=== PATIENT | male | born 1960 | race Caucasian/White ===

== ENCOUNTER 2016-07-04 06:41 | Emergency (ER) | payer BC ==
[2016-07-04] MEDS ORDERED: Ondansetron ODT TAB* 4 MG PO ONE (07:12)
[2016-07-04] MEDS ORDERED: NS 0.9% 1000 ML* 1,000 ML IV ONE (07:12)
[2016-07-04] MEDS ORDERED: Ondansetron INJ* 2 MG/ML VIAL IV ONE ×2 (07:31→11:36)
[2016-07-04 08:11] LABS: Hematocrit 41 % (42-52); Hemoglobin 14.2 g/dl (14.0-18.0); Mean Corpuscular HGB Conc 35 g/dl (31-36); Mean Corpuscular Hemoglobin 31 pg (27-31); Mean Corpuscular Volume 90 fL (80-94); Mean Platelet Volume 7 um3 (7.4-10.4); Red Blood Count 4.53 10^6/ul (4.0-5.4); Red Cell Distribution Width 14 % (10.5-15); White Blood Count 7.1 10^3/ul (3.5-10.8)
[2016-07-04 08:23] LABS: ALT 18 U/L (7-52); Albumin 4.1 g/dL (3.2-5.2); Alkaline Phosphatase 47 U/L (34-104); Amylase 20 U/L (29-103); BUN/Creatinine Ratio 22.5 (8-20); Blood Urea Nitrogen 18 mg/dL (6-24); C Reactive Protein 11.28 mg/L (< 5.00); CO2 Carbon Dioxide 22 mmol/L (22-32); Calcium 8.7 mg/dL (8.6-10.3); Chloride 104 mmol/L (101-111); EGFR African American 128.6 (>60); Globulin 2.7 g/dL (2-4); Glucose 144 mg/dL (70-100); Lipase 21 U/L (11.0-82.0); Sodium 134 mmol/L (133-145); Total Protein 6.8 g/dL (6.4-8.9)
--- NOTE | 2016-07-04 08:30 | ED ---
Abdominal Pain/Male - HPI Summary HPI Summary: Pt here w/ nausea x 1 month which has now progressed to vomiting in the past 2 days. He noticed this around the time he started taking medications for his bronchitis - initially tried Zpak w/o relief so was switched to something else ( he does not recall). Did not complete medication as nausea was too much to handle - worse after taking medications. He has a h/o GERD but states this doesn't feel the same. Has been taking his pantoprazole 40mg daily as directed. Also has an extensive h/o cardiac pathology with 5 IA's and cardiac cath x 20 per pt. He has multiple stents in place. Reports his sx today do NOT feel cardiac in nature based on location, quality and lack of associated sx. Denies iker chest pain, radiation from area of "discomfort" which he describes in the Lt sided ab/lower chest, SOB, RUIZ, LE edema. He does feel flushed when nausea approaches. Has tried peptobismal w/ o relief and reports this medication makes his stools dark but it's better when he's not taking it. Last BM was yesterday - normal for him. Denies mid or lower ab pain. No previous h/o ab surgery. Last colonoscopy 20 years ago for bleeding which was attributed to heavy ibuprofen use. He is currently on warfarin and a daily ASA 81mg for Factor V leiden w/ h/o clots. No iker bleeding or bruising to report at this time. H/o Lyme dz - takes daily anbx (cefuroxime axetil) for this as well. - History of Current Complaint Chief Complaint: EDNauseaVomitDiarrh Stated Complaint: VOMITING Time Seen by Provider: 07/04/16 06:59 Hx Obtained From: Patient Pain Intensity: 3 - Allergies/Home Medications Allergies/Adverse Reactions: Allergies Allergy/AdvReac Type Severity Reaction Status Date / Time Ibuprofen Allergy Severe Bleeding Verified 07/04/16 13:27 Penicillins [PCN] Allergy Severe Anaphylatic Verified 07/04/16 13:28 Shock Statins Allergy See Comment Verified 07/04/16 13:27 PMH/Surg Hx/FS Hx/Imm Hx Endocrine/Hematology History: Reports: Hx Anticoagulant Therapy - COUMADIN FOR FACTOR V LEIDEN, Hx Blood Disorders - FACTOR V LEIDEN DEFICIENCY, Hx Diabetes - DM 2 METFORMIN, Hx Thyroid Disease - HYPOTHYROID, ON DAILY MEDS, Other Endocrine /Hematological Disorders - Lyme disease Denies: Hx Blood Transfusions, Hx Bone Marrow Disease, Hx Systemic Lupus Erythematosus, Hx Sickle Cell Disease, Hx Anemia, Hx Unexplained Bleeding Cardiovascular History: Reports: Hx Angina, Hx Coronary Artery Disease, Hx Hypercholesterolemia, Hx Hypertension - ON DAILY MEDS, Hx Myocardial Infarction , Other Cardiovascular Problems/Disorders - FOLLOWED BY DR ELDRIDGE, LAST SEEN 06/13 Denies: Hx Aneurysm, Hx Auto Implanted Cardiovert Defib, Hx Cardiac Arrest, Hx Cardiomegaly, Hx Congenital Heart Disease, Hx Congestive Heart Failure, Hx Hypotension, Hx Pacemaker/ICD, Hx Peripheral Vascular Disease, Hx Rheumatic Fever, Hx Syncope, Hx Valvular Heart Disease Respiratory History: Reports: Hx Sleep Apnea Denies: Hx Asthma, Hx Chronic Bronchitis, Hx Chronic Obstructive Pulmonary Disease (COPD), Hx Cystic Fibrosis, Hx Lung Cancer, Hx Pleural Effusion, Hx Pneumonia, Hx Pulmonary Edema, Hx Seasonal Allergies, Other Respiratory Problems /Disorders GI History: Reports: Hx Gastroesophageal Reflux Disease - ON DAILY MEDS Denies: Hx Cirrhosis, Hx Crohn's Disease, Hx Diverticulosis, Hx Gall Bladder Disease, Hx Gastrointestinal Bleed, Hx Hiatal Hernia, Hx Irritable Bowel, Hx Jaundice, Hx Obstructive Bowel, Hx Ileostomy, Hx Pyloric Stenosis, Hx Ulcer, Other GI Disorders History: Denies: Hx Acute Renal Failure, Hx Benign Prostatic Hyperplasia, Hx Chronic Renal Failure, Hx Dialysis, Hx Kidney Infection, Hx Kidney Stones Musculoskeletal History: Reports: Hx Arthritis - Sx, BUT CAUSE OF JOINT PAINS IS R/T LYME DISEASE, Other Musculoskeletal History - RIGHT KNEE ARTHROSCOPY Denies: Hx Back Problems, Hx Bursitis, Hx Congenital Bone Abnormalities, Hx Fibromyalgia, Hx Gout, Hx Orthopedic Injury, Hx Osteoporosis, Hx Scoliosis, Hx Tendonitis Sensory History: Reports: Hx Contacts or Glasses - GLASSES Denies: Hx Cataracts, Hx Eye Injury, Hx Eye Prosthesis, Hx Glaucoma, Hx Legally Blind, Hx Macular Degeneration, Hx Vision Problem, Hx Deafness, Hx Hearing Aid, Hx Hearing Problem, Other Sensory Impairments Opthamlomology History: Reports: Hx Contacts or Glasses - GLASSES Denies: Hx Cataracts, Hx Eye Injury, Hx Eye Prosthesis, Hx Glaucoma, Hx Legally Blind, Hx Macular Degeneration, Hx Vision Problem, Other Sensory Impairments Neurological History: Denies: Hx Dementia, Hx Developmental Delay, Hx Headaches, Hx Migraine, Hx Nerve Disease, Hx Seizures, Hx Spinal Cord Injury, Hx Transient Ischemic Attacks (TIA) Psychiatric History: Reports: Hx Depression - HAS MEDS PRN Denies: Hx Anxiety, Hx Attention Deficit Hyperactivity Disorder, Hx Eating Disorder, Hx Panic Disorder, Hx Post Traumatic Stress Disorder, Hx Inpatient Treatment, Hx Community Mental Health Tx, Hx Schizophrenia, Hx Bipolar Disorder , Hx Suicide Attempt, Hx of Violent Episodes Against Others, Hx Substance Abuse , Other Psychiatric Issues/Disorders - Surgical History Surgery Procedure, Year, and Place: MULT.CARDIAC CATHETERIZATIONS W/STENTS, [id number] [facility] [place]. 1999 RIGHT KNEE ARTHROSCOPY [facility] [place] Hx Anesthesia Reactions: No Infectious Disease History: No Infectious Disease History: Denies: Hx Clostridium Difficile, Hx Hepatitis, Hx Human Immunodeficiency Virus (HIV), Hx of Known/Suspected MRSA, Hx Shingles, Hx Tuberculosis, Hx Known/ Suspected VRE, Hx Known/Suspected VRSA, History Other Infectious Disease, Traveled Outside the in Last 30 Days - Social History Occupation: Employed Full-time - machinist apprentice Lives: With Family - Alcohol Use: Rare Substance Use Type: Reports: None Smoking Status (MU): Former Smoker Type: Cigarettes Amount Used/How Often: 2PPD 30 YRS Length of Time of Smoking/Using Tobacco: 30 yrs; quit 2004 Have You Smoked in the Last Year: No Review of Systems Positive: Fatigue - nausea has been exhausting to deal with. Negative: Fever, Chills Eyes: Negative ENT: Negative Negative: Chest Pain Respiratory: Other - bronchitis improved since last month - no complaints at this time Negative: Shortness Of Breath, Cough Gastrointestinal: Other - see HPI Positive: no symptoms reported Musculoskeletal: Negative Skin: Negative Neurological: Negative Psychological: Normal - concerned All Other Systems Reviewed And Are Negative: Yes Physical Exam Triage Information Reviewed: Yes Vital Signs On Initial Exam: Initial Vitals Temp Pulse Resp BP Pulse Ox 96.3 F 77 18 166/78 99 07/04/16 06:49 07/04/16 06:49 07/04/16 06:49 07/04/16 06:49 07/04/16 06:49 Vital Signs Reviewed: Yes Appearance: Positive: Well-Nourished, Ill-Appearing - appears pale in general Skin: Positive: Warm, Dry - no ecchymosis Head/Face: Positive: Normal Head/Face Inspection Eyes: Positive: Normal, EOMI, Conjunctiva Clear - anicteric ENT: Positive: Hearing grossly normal, Pharynx normal - mucosa somewhat dry Neck: Positive: Supple Respiratory/Lung Sounds: Positive: Clear to Auscultation, Breath Sounds Present. Negative: Rales, Rhonchi, Wheezes Cardiovascular: Positive: Normal, RRR, Pulses are Symmetrical in both Upper and Lower Extremities, S1, S2. Negative: Murmur, Rub, Leg Edema Left, Leg Edema Right Abdomen Description: Positive: Guarding, Other: - epigastric, RUQ and LUQ. Negative: CVA Tenderness (R), CVA Tenderness (L), McBurney's Point Tenderness, Pulsatile Mass Bowel Sounds: Positive: Present Musculoskeletal: Positive: Normal, Strength/ROM Intact Neurological: Positive: Normal, Sensory/Motor Intact, Alert, Oriented to Person Place, Time, CN Intact II-III Psychiatric: Positive: Normal - concerned, subtle anxiety Diagnostics - Vital Signs Vital Signs Temp Pulse Resp BP Pulse Ox 07/04/16 06:49 96.3 F 77 18 166/78 99 - Laboratory Lab Results: Lab Results 07/04/16 07/04/16 07/04/16 Range/Units 07:54 07:54 07:54 WBC 7.1 (3.5-10.8) 10^3/ul RBC 4.53 (4.0-5.4) 10^6/ul Hgb 14.2 (14.0-18.0) g/dl Hct 41 L (42-52) % MCV 90 (80-94) fL MCH 31 (27-31) pg MCHC 35 (31-36) g/dl RDW 14 (10.5-15) % Plt Count 188 (150-450) 10^3/ul MPV 7 L (7.4-10.4) um3 Neut % (Auto) 74.9 (38-83) % Lymph % (Auto) 15.6 L (25-47) % Ferry % (Auto) 7.0 (1-9) % Eos % (Auto) 2.0 (0-6) % Baso % (Auto) 0.5 (0-2) % Absolute Neuts (auto) 5.3 (1.5-7.7) 10^3/ul Absolute Lymphs (auto) 1.1 (1.0-4.8) 10^3/ul Absolute Monos (auto) 0.5 (0-0.8) 10^3/ul Absolute Eos (auto) 0.1 (0-0.6) 10^3/ul Absolute Basos (auto) 0 (0-0.2) 10^3/ul Absolute Nucleated RBC 0 10^3/ul Nucleated RBC % 0 INR (Anticoag Therapy) 1.98 H (0.89-1.11) APTT 36.2 (26.0-36.3) seconds Lactic Acid 1.1 (0.5-2.0) mmol/L Result Diagrams: 07/04/16 07:54 07/04/16 10:15 Lab Statement: Any lab studies that have been ordered have been reviewed, and results considered in the medical decision making process. Re-Evaluation - Re-Evaluation First Eval Change: Improved - nausea improved - stomach not as sore - no GERD sx and no chest pain - was resting comfortably upon re-check Abdominal Pain Fem Course/Dx - Course Course Of Treatment: Pt presents w/ nausea x 1 month and vomiting in past 24 hours. No life threatenting causes for these sx were identified today and pt's sx improved w/ anti-emetic and IV fluids. Discussed other possible options for his condition w/ pt and who agree to f/u w/ PCP this week for further investigation (see d/c for details). Reviewed danger s/sx of when to return to ED. - Diagnoses Provider Diagnoses: Epigastric abdominal pain, Nausea & vomiting - Provider Notifications Discussed Care Of Patient With: Dr. Basilio Discharge - Discharge Plan Condition: Stable Disposition: HOME Prescriptions: Ondansetron ODT TAB* [Zofran Odt TAB*] 4 mg PO Q8H PRN #9 tab.odt PRN Reason: Nausea Patient Education Materials: Acute Nausea and Vomiting (ED), Abdominal Pain (ED ) Forms: *Work Release Referrals: Supa Eldridge MD [Primary Care Provider] - Additional Instructions: Your nausea and abdominal pain are of unknown origin. Potential life threatening causes of acute cardiac injury and/or abdominal organ dysfunction have been ruled out through tests today. Your nausea improved and abdominal pain lessened with zofran, an anti-nausea medication. It is important that you follow-up with your PCP to further discuss other potential triggers for these symptoms. You reported a history of h. pylori which can be tested. You also have been using antibiotics for a long period of time and may benefit from probiotic therapy. Your gallbladder may also not be functioning well. And so on. If you develop worsening of symptoms, return to ED.
[2016-07-04 08:55] LABS: TSH (Thyroid Stimulating Horm) 1.93 mcIU/mL (0.34-5.60)
--- NOTE | 2016-07-04 11:23 | RAD ---
INDICATION: Right upper quadrant pain. COMPARISON: Comparison is made with a prior right upper quadrant ultrasound from [address] of the abdomen from January 15, 2012. TECHNIQUE: Multiple real-time images of the right upper quadrant were obtained. FINDINGS: The gallbladder appear normal. No gallbladder wall thickening or pericholecystic fluid is present. No intra or extrahepatic ductal distention is present. The common bile duct measured 0.4 cm in diameter. The liver is normal in size and increased in echogenicity most consistent with fatty infiltration. This correlates with the prior CT findings. No significant focal abnormality is seen. The pancreas is partially obscured by overlying bowel gas. The right kidney is normal in size without evidence for hydronephrosis. IMPRESSION: 1. NORMAL EXAMINATION OF THE GALLBLADDER. 2. FINDINGS MOST CONSISTENT WITH FATTY INFILTRATION OF THE LIVER.
[2016-07-04] MEDS ORDERED: Iodixanol* (CONTRAST) 320 MG/ML 100 ML SDV IV ONE (11:34)
--- NOTE | 2016-07-04 12:36 | RAD ---
INDICATION: Upper abdominal pain and vomiting. COMPARISON: Comparison is made with a prior CT angiogram of the abdomen and pelvis from January 15, 2012. TECHNIQUE: A CT scan of the abdomen and pelvis was performed with intravenous and oral contrast following intravenous injection of 125 ml of is a PICC 320 nonionic contrast. Contiguous axial sections were obtained from the lung bases through the symphysis pubis. Images were reconstructed in the coronal and sagittal planes. FINDINGS: The lung bases are clear. No pleural effusion is present. The liver and spleen are within normal limits in size without significant focal abnormality. No calcified gallstones are seen. The pancreas appears to be within normal limits in size. The kidneys and adrenal glands are normal in size. No hydronephrosis is seen. No significant focal renal abnormality is seen. The abdominal aorta is normal in caliber. There is moderate calcific plaque present. There is a high-grade stenosis at the origin of the celiac artery. This is unchanged from the prior study. No significant enlarged retroperitoneal abdominal or pelvic lymph nodes are seen. The stomach, small and large bowel appear nondistended. The appendix is within normal limits. There is no evidence for diverticulitis or colitis. There is a small periumbilical hernia containing fat. No free intraperitoneal air or fluid is seen. No significant focal osseous abnormality is seen. IMPRESSION: 1. NO EVIDENCE FOR ACUTE INTRA-ABDOMINAL ABNORMALITY OR CAUSE FOR THE PATIENT'S ABDOMINAL PAIN IS SEEN. 2. 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
[2016-07-04 13:47] VITALS: BP 158/76
== END 2016-07-04 13:45 | disposition home or self-care (01) ==
LOC: ED 06:41
DX: R10.13 Epigastric pain (principal); R53.83 Other fatigue; R11.2 Nausea with vomiting, unspecified
CPT/HCPCS: 36415; 74177; 76705; 80053; 82150; 82272; 83605; 83690; 84443; 84484; 85025; 85610; 85730; 86140; 93005; 96374; 96375; 99282; J2405; Q9967

== ENCOUNTER 2016-10-04 18:49 | Emergency (ER) | payer BC ==
[2016-10-04 19:08] VITALS: BP 158/78
--- NOTE | 2016-10-04 19:10 | UC ---
Laceration HPI - HPI Summary HPI Summary: complaint of laceration on left middle finger he was at work today and his finger was pinched between 2 peices of steel that he was moving occurred at 1845 this evening hasn't taken any medications for pain last tetanus 2008 - History Of Current Complaint Stated Complaint: FINGER LAC Time Seen by Provider: 10/04/16 19:01 Hx Obtained From: Patient Mechanism Of Injury: Sharp Trauma Onset/Duration: Sudden Onset Severity: Mild Aggravating Factors: Nothing Related History: Occupational Injury, Dominant Hand Right - Allergies/Home Medications Allergies/Adverse Reactions: Allergies Allergy/AdvReac Type Severity Reaction Status Date / Time Ibuprofen Allergy Severe Bleeding Verified 07/04/16 13:27 Penicillins [PCN] Allergy Severe Anaphylatic Verified 07/04/16 13:28 Shock Statins Allergy See Comment Verified 07/04/16 13:27 Home Medications: Home Medications Cefuroxime Axetil [Ceftin 500 MG TAB] 10/04/16 [History] Fenofibrate [Tricor] DAILY 10/04/16 [History] Hydroxychloroquine TAB* [Plaquenil TAB*] 10/04/16 [History] Pioglitazone HCl 10/04/16 [History] traZODone TAB* [Desyrel TAB*] 10/04/16 [History] PMH/Surg Hx/FS Hx/Imm Hx Previously Healthy: Yes Endocrine History Of: Reports: Diabetes - DM 2 METFORMIN, Thyroid Disease - HYPOTHYROID, ON DAILY MEDS Cardiovascular History Of: Reports: Hypertension - ON DAILY MEDS, Myocardial Infarction Denies: Pacemaker/ICD, Congestive Heart Failure Respiratory History Of: Denies: COPD, Asthma, Pneumonia GI/ History Of: Denies: Ulcer, Gastrointestinal Bleed, Gall Bladder Disease, Kidney Stones, Renal Disease Neurological History Of: Denies: TIA, CVA, Dementia, Seizures, Migraine Psychological History Of: Reports: Depression - HAS MEDS PRN Denies: Anxiety, Bipolar Disorder, Schizophrenia Cancer History Of: Denies: Lung Cancer Other History Of: Anticoagulant Therapy - COUMADIN FOR FACTOR V LEIDEN - Surgical History Surgical History: Yes Surgery Procedure, Year, and Place: MULT.CARDIAC CATHETERIZATIONS W/STENTS, [id number] [place]. 2000 RIGHT KNEE ARTHROSCOPY [place] - Family History Known Family History: Negative: Cardiac Disease, Hypertension, Diabetes - Social History Occupation: Employed Full-time Lives: With Family Alcohol Use: Rare Substance Use Type: None Smoking Status (MU): Former Smoker Type: Cigarettes Amount Used/How Often: 2PPD 30 YRS Length of Time of Smoking/Using Tobacco: 30 yrs; quit 2004 Have You Smoked in the Last Year: No When Did the Patient Quit Smoking/Using Tobacco: 2006 - Immunization History Most Recent Influenza Vaccination: FALL 2013 Most Recent Tetanus Shot: UNK Most Recent Pneumonia Vaccination: NEVER Review of Systems Constitutional: Negative Skin: Other - laceration left middle finger Eyes: Negative ENT: Negative Respiratory: Negative Cardiovascular: Negative Gastrointestinal: Negative Genitourinary: Negative Motor: Negative Neurovascular: Negative Musculoskeletal: Negative Neurological: Negative Psychological: Negative All Other Systems Reviewed And Are Negative: Yes Physical Exam Triage Information Reviewed: Yes Appearance: No Pain Distress, Well-Nourished Vital Signs Reviewed: Yes Eyes: Positive: Conjunctiva Clear Neck: Positive: Supple Respiratory: Positive: Lungs clear, Normal breath sounds, No respiratory distress Cardiovascular: Positive: RRR, No Murmur, Pulses Normal Musculoskeletal: Positive: Other: - left middle finger 1.5 cm laceration Neurological Exam: Normal Psychological Exam: Normal Laceration Repair - Laceration Repair 1 Description: Linear Laceration Size After Repair: Length (cm) - 1.5cm, Width (mm) - 2, Depth (mm) - 3 Modified For Repair: No Type Injection: Local Anesthesia Used: 2.0% Lido Cleansing Completed Via Routine Prep: Yes Irrigation With Pressure Irrigation Device: Yes Closure Material: Sutures Closure Method: Single Layer Suture Of: Skin, SQ Suture Type: Nylon - 6 sutures Laceration Course/Dx - Differential Dx - Laceration/Wound Differental Diagnoses: Laceration Provider Diagnoses: left middle finger laceration-simple Discharge - Discharge Plan Condition: Stable Disposition: HOME Patient Education Materials: Care For Your Stitches (ED), Finger Laceration (ED ) Referrals: Supa Smallwood MD [Primary Care Provider] - Additional Instructions: Your blood pressure is elevated. Please contact your primary care provider within 1 day -4 weeks for further evaluation. LACERATION What is a Laceration? Laceration is the medical name for a cut. Lacerations may be large or small. Some lacerations need stitches (also called sutures) to close them so they will heal well. Stitches usually need to be placed within 6 hours of injury. There are times when a wound may be determined to be too old for stitches. Stitches are removed when the wound is strong enough to stay closed, which is usually in 7-10 days, depending on where the wound or cut is located. Some stitches dissolve by themselves and do not need to be removed. If you have been given a numbing medicine, there will be some pain when it wears off. The pain from the wound should begin to decrease within one day. Treatment Recommendations: Keep the wound clean and dry for at least the next two (2) days. Keep the dressing clean if at all possible. If you must work in surroundings that will dirty the wound or dressing, wear a protective covering such as a glove. If the wound does get dirty, clean it as soon as you can with mild soap and water using a patting action. Do not rub or scrub vigorously. Then pat it dry completely. If a dressing was placed on the wound, you should put a clean one on at least daily and whenever you clean the wound. You can apply antibiotic ointment such as Bacitracin ointment to the wound each time you change the dressing. Avoid using the injured part as much as possible. If the wound is near a joint , try not to bend the joint too much. Elevate the injured part above your heart whenever possible to relieve throbbing. If you had stitches put in, you should see your healthcare provider in 1 to 2 days to have the wound checked for any signs or symptoms of infection. Some stitches will dissolve by themselves. Others will need to be removed. Make an appointment with your healthcare provider to have the stitches removed on the date instructed. . Call Your Doctor or Return Here IF: Your wound becomes red, warm, swollen or more painful. There are red streaks coming from the wound. You develop a fever or shaking chills. Pus or bad smelling fluid comes out of the wound. You have any other symptoms that worry you.
[2016-10-04] MEDS ORDERED: Lidocaine 2% PF* 5 ML VIAL ONE (19:20)
== END 2016-10-04 20:17 | disposition home or self-care (01) ==
LOC: UCEAST 18:49
DX: S61.213A Laceration without foreign body of left middle finger without damage to nail, initial encounter (principal); W26.8XXA Contact with other sharp object(s), not elsewhere classified, initial encounter; E11.9 Type 2 diabetes mellitus without complications; I10 Essential (primary) hypertension; I25.2 Old myocardial infarction; D68.51 Activated protein C resistance; F32.9 Major depressive disorder, single episode, unspecified; Z88.6 Allergy status to analgesic agent; Z88.0 Allergy status to penicillin; Z87.891 Personal history of nicotine dependence; Z79.01 Long term (current) use of anticoagulants
CPT/HCPCS: 12001; 99212; G0463

== ENCOUNTER 2017-03-30 21:22 | Observation (INO) | payer BC ==
[2017-03-30] MEDS ORDERED: Aspirin Low Dose CHEW TAB* 81 MG PO ONE (21:30)
[2017-03-30] MEDS ORDERED: NS 0.9% 1000 ML* 1,000 ML IV ONE (21:36)
[2017-03-30] MEDS ORDERED: Morphine INJ* 4 MG/ML 1 ML CARPUJECT IV ONE (21:38)
[2017-03-30] MEDS ORDERED: Ondansetron INJ* 2 MG/ML VIAL IV ONE (21:38)
[2017-03-30 22:03] LABS: Hematocrit 44 % (42-52); Hemoglobin 15.7 g/dl (14.0-18.0); Mean Corpuscular HGB Conc 36 g/dl (31-36); Mean Corpuscular Hemoglobin 32 pg (27-31); Mean Corpuscular Volume 88 fL (80-94); Mean Platelet Volume 8 um3 (7.4-10.4); Red Blood Count 4.96 10^6/ul (4.0-5.4); Red Cell Distribution Width 13 % (10.5-15); White Blood Count 11.6 10^3/ul (3.5-10.8)
[2017-03-30 22:04] LABS: Comments Flag Yes
[2017-03-30 22:19] LABS: Albumin 4.7 g/dL (3.2-5.2); BUN/Creatinine Ratio 21.3 (8-20); C Reactive Protein 6.71 mg/L (< 5.00); Calcium 9.8 mg/dL (8.6-10.3); EGFR African American 128.1 (>60); EGFR Non-African American 99.6 (>60); Globulin 2.8 g/dL (2-4); Potassium 3.4 mmol/L (3.5-5.0); Total Bilirubin 0.5 mg/dL (0.2-1.0); Total Protein 7.5 g/dL (6.4-8.9)
[2017-03-30 22:20] LABS: Troponin I 0.01 ng/mL (<0.04)
[2017-03-30] MEDS ORDERED: Iodixanol* (CONTRAST) 320 MG/ML 100 ML SDV IV ONE (23:27)
[2017-03-31] MEDS ORDERED: Nitroglycerin TAB 0.4 MG* 0.4 MG TAB SL PRN (01:36)
[2017-03-31] MEDS ORDERED: traZODone TAB* 50 MG TAB PO PRN (01:36)
[2017-03-31] MEDS ORDERED: Zolpidem TAB* 10 MG PO PRN (01:36)
[2017-03-31] MEDS ORDERED: Dextrose 50% Syringe 50 ML* 25 GM/50 ML SYRINGE IV PUSH PRN (01:49)
[2017-03-31] MEDS: Morphine INJ* 4 MG/ML 1 ML CARPUJECT IV PRN ×2 (03:00→17:16)
[2017-03-31] MEDS: NS 0.9% 1000 ML* 1,000 ML IV SCH ×2 (03:38→17:15)
--- NOTE | 2017-03-31 04:37 | HP ---
ADMISSION HISTORY AND PHYSICAL: DATE OF ADMISSION: 03/30/17 PRIMARY CARE PROVIDER: Supa Smallwood MD PLUGGER MAN: Dr. Wyatt in [place]. HEALTHCARE PROXY: Fe Pérez, his . CODE STATUS: Full. SOURCE OF INFORMATION: History obtained from interview of the patient and his , review of past medical records. RELIABILITY: Good. CHIEF COMPLAINT: Abdominal pain. HISTORY OF PRESENT ILLNESS: This is a 56-year-old man with past medical history most significant for coronary artery disease, complicated by multiple myocardial infarctions and multiple stents, last stented to his LAD in 2014 at this facility, no stents since that time. 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 The day prior to presentation, he felt "crappy" and stayed in bed all day. He ate very little, although did eat some eggs, did not have any vomiting. Today, prior to presenting to the emergency room, he developed abdominal pain at approximately 6 p.m., like a "big knot in my stomach " that was constant on the left, nonradiating. His last bowel movement was this morning, it was usual in consistency and caliber, but he has noticed decreased flatus over the last 1 or 2 days. He denies any fevers, but does endorse sweating x2 days. No changes in weight. His last colonoscopy was about 20 years prior to presentation. He has been taking his medications sporadically over the last 2 days with increase in nausea and onset of abdominal pain today. In the emergency room, he had a CT abdomen and pelvis, preliminary imaging on- call impression of partial small bowel obstruction without discrete transition point abscess or free air. PAST MEDICAL HISTORY: Includes CAD, last stenting to LAD in 2014, multiple stents and multiple cardiac catheterizations prior to that, GERD, depression, hypothyroidism, hypotension, type 2 diabetes, noninsulin dependent, NICANOR, has never been able to wear CPAP secondary to abdominal distress, factor V Leiden, complicated by venous thromboembolism with DVTs, denies history of pulmonary embolisms, right shoulder surgery, right knee surgery. No history of abdominal surgeries. SOCIAL HISTORY: Works as a computer numerical control machinist, prior tobacco 2 packs per day for 30 years, quit approximately 10 years prior to presentation, rare alcohol, but previous 6 beers per day, quit approximately 2 to 3 years ago. He is . FAMILY HISTORY: Mother with factor V Leiden, cirrhosis, and DVTs. Father with lung cancer. ALLERGIES: To IBUPROFEN, PENICILLIN, and STATIN. MEDICATIONS: Reviewed with patient: 1. Diltiazem 24 hour preparation 180 mg daily. 2. Coumadin 5 mg alternating with 7.5 mg every other day. 3. Fenofibrate 48 mg daily. 4. Lisinopril 20 mg twice daily. 5. Pioglitazone 15 mg daily. 6. Cefuroxime 500 mg twice daily, being treated for chronic Lyme's. 7. Zolpidem 10 mg daily. 8. Metoprolol 50 mg twice daily. 9. Levothyroxine 100 mg daily. 10. Hydrochlorothiazide 25 mg daily. 11. Clopidogrel 75 mg daily. 12. Escitalopram 20 mg daily. 13. Pantoprazole 40 mg twice daily. 14. Bupropion 150 mg 2 per day, that should be 300 mg daily. 15. Baby aspirin 81 mg daily. 16. Trazodone 50 mg 1 to 2 tabs per day. 17. Hydroxychloroquine 200 mg 2 times per day. 18. Oxycodone 10/325 one tab every 4 hours as needed. 19. Nitrostat 0.4 mg every 5 minutes as needed for chest pain. REVIEW OF SYSTEMS: As per HPI. Notable for abdominal pain, nausea, vomiting, sweating, anorexia. Otherwise, all other systems reviewed and negative. PHYSICAL EXAMINATION GENERAL: Lying flat in bed, interactive, pleasant, in no apparent distress. VITAL SIGNS: When seen by this author, 160/69, heart rate is 80, respiratory rate is 12, 98% on room air. T-max 97.4. HEENT: Oropharynx is clear. He has moist mucous membranes. Sclerae anicteric. Non-elevated JVD. LUNGS: Clear to auscultation. HEART: Regular rate and rhythm. No murmurs, rubs, or gallops. ABDOMEN: Soft, tenderness worse in the left upper quadrant, positive bowel sounds throughout. No rebound or guarding. EXTREMITIES: Warm and well perfused without clubbing, cyanosis, or edema. He has less than 2-second cap refill. He is alert and oriented x3. NEURO: His cranial nerves are II through XII were intact. No apparent anxiety , agitation or depression. DIAGNOSTIC STUDIES/LAB DATA: Labs reviewed, notable for white blood cell count 11.6, shows 59% neutrophils, hemoglobin 15.7, platelets 247. Lactic acid is 2.3. Total bilirubin 0.5, AST 16, ALT 17, CRP is 6.71. BNP is 28. Troponin 0.01, amylase 27, lipase 27. Pertinent data: CT abdomen and pelvis as indicated above. Partial small bowel obstruction. EKG notable for subtle ST depression at V3 and V4. T-wave flattening in V2. ASSESSMENT AND PLAN: A 56-year-old man presenting with abdominal pain, found with partial small bowel obstruction on CT abdomen and pelvis. 1. Partial small bowel obstruction. NPO except for meds, has not had any vomiting since presentation. We will forego NG tube. Received normal saline for 2 additional liters. If conservative management does not yield improvement , will need Surgery consultation, potential re-image with plain film for progression of partial SBO. 2. Coronary artery disease. Continue home medications including aspirin and Plavix. Given subtle ST depressions as well as T-wave flattening, we will check , repeat troponin now. 3. Type 2 diabetes, noninsulin dependent. However, we will cover with insulin sliding scale while NPO. 4. Hypertension. Continue home medications. 5. Obstructive sleep apnea. Does not use CPAP at home, we will not use here. 6. Factor V Leiden. INR not checked in the emergency room. We will add on now. Continue Coumadin. Suspect INR will be low in the setting of inability to tolerate medications, attempt Coumadin. We will hospitalize. 7. Increased lactic acidosis. Suspect in the setting above, repeat now, further treatment pending results. 8. DVT prophylaxis. Coumadin. [id number]/[facility] #: [id number] [place]EN[place]
[2017-03-31] MEDS: Insulin LISPRO* 1 UNITS UNIT SUBCUT SCH ×3 (06:14→17:18)
[2017-03-31] MEDS: Levothyroxine TAB* 100 MCG TAB PO SCH (06:14)
[2017-03-31 06:22] LABS: Hematocrit 38 % (42-52); Hemoglobin 13.5 g/dl (14.0-18.0); Mean Corpuscular HGB Conc 35 g/dl (31-36); Mean Corpuscular Hemoglobin 31 pg (27-31); Mean Corpuscular Volume 89 fL (80-94); Mean Platelet Volume 8 um3 (7.4-10.4); Red Blood Count 4.29 10^6/ul (4.0-5.4); Red Cell Distribution Width 13 % (10.5-15); White Blood Count 7.8 10^3/ul (3.5-10.8)
[2017-03-31 06:40] LABS: BUN/Creatinine Ratio 23.5 (8-20); Calcium 8.4 mg/dL (8.6-10.3); EGFR African American 154.6 (>60); EGFR Non-African American 120.2 (>60); Potassium 3.3 mmol/L (3.5-5.0)
--- NOTE | 2017-03-31 07:23 | RAD ---
INDICATION: Chest pain. COMPARISON: Comparison is made with a prior study from September 26, 2014. TECHNIQUE: A portable view of the chest was obtained. FINDINGS: Cardiac and mediastinal contours appear to be within normal limits. The lungs are clear. No pleural effusion is seen. IMPRESSION: NO EVIDENCE FOR ACUTE DISEASE.
--- NOTE | 2017-03-31 08:02 | RAD ---
INDICATION: Left upper quadrant abdominal pain. COMPARISON: Comparison is made with a prior study from [place] 2016. TECHNIQUE: A CT scan of the abdomen and pelvis was performed with intravenous and oral contrast following intravenous injection of 128 ml of Visipaque 320 nonionic contrast. Contiguous axial sections were obtained from the lung bases through the symphysis pubis. Images were reconstructed in the coronal and sagittal planes. FINDINGS: The lung bases are clear. No pleural effusion is present. The liver and spleen are normal in size. The liver is decreased in attenuation consistent with fatty infiltration. No significant focal hepatic abnormality is seen. No calcified gallstones are noted. The pancreas appears to be within normal limits. The kidneys and adrenal glands are normal in size. No hydronephrosis is seen. No significant focal renal abnormality is seen. The abdominal aorta is normal in caliber. There is moderate to severe diffuse calcific plaque present. There appears to be a moderate to high-grade stenosis of the proximal celiac artery. No significant enlarged retroperitoneal lymph nodes are seen. The stomach and proximal small bowel appears nondistended. There is moderate distention of the mid small bowel. The distal small bowel is and colon are not distended. The appendix is within normal limits. There is no evidence for diverticulitis or colitis. There is a small periumbilical hernia containing fat. No free to peritoneal air is seen. There is a small amount of free intraperineal fluid present. No significant focal osseous abnormality is seen. IMPRESSION: 1. MODERATE GRADE PARTIAL OBSTRUCTION OF THE MID SMALL BOWEL. 2. SMALL AMOUNT OF FREE INTRAPERITONEAL FLUID. 3. 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
[2017-03-31] MEDS: Hydrochlorothiazide TAB* 25 MG PO SCH (08:36)
[2017-03-31] MEDS: Pioglitazone TAB* 15 MG PO SCH (08:36)
[2017-03-31] MEDS: ceFUROXime TAB(*) 250 MG PO SCH ×2 (08:36→20:34)
[2017-03-31] MEDS: Citalopram TAB* 20 MG PO SCH (08:37)
[2017-03-31] MEDS: Aspirin Low Dose CHEW TAB* 81 MG PO SCH (08:37)
[2017-03-31] MEDS: Diltiazem CD CAP* 180 MG PO SCH (08:37)
[2017-03-31] MEDS: Lisinopril TAB* 10 MG PO SCH ×2 (08:37→20:35)
[2017-03-31] MEDS: Metoprolol Succinate XL TAB* 50 MG PO SCH ×2 (08:37→20:34)
[2017-03-31] MEDS: Potassium Chlor TAB* 20 MEQ TAB.ER PO SCH ×2 (08:37→20:35)
[2017-03-31] MEDS: Clopidogrel TAB* 75 MG PO SCH (08:37)
[2017-03-31] MEDS: CMCS:Pantoprazole TAB (NF) 40 MG TAB PO SCH ×2 (08:38→20:35)
[2017-03-31] MEDS: Fenofibrate(NF) 48 MG TAB PO SCH (08:40)
[2017-03-31] MEDS: Hydroxychloroquine TAB* 200 MG PO SCH ×2 (08:43→20:34)
[2017-03-31] MEDS: Ondansetron INJ* 2 MG/ML VIAL IV PRN ×4 (09:30→22:10)
[2017-03-31] MEDS: buPROPion SR TAB.SR* 150 MG PO SCH (10:02)
--- NOTE | 2017-03-31 14:27 | RAD ---
HISTORY: Partial bowel obstruction COMPARISONS: CT dated March 30, 2017 VIEWS: Frontal views of the abdomen. FINDINGS: BOWEL: There is distention of the proximal small bowel with mild dilatation. Gas is noted distally within the colon. This is improved when compared to March 30, 2017. CALCULI: There are no abnormal calculi. BONES AND SOFT TISSUES: Degenerative changes are noted of the spine OTHER FINDINGS: The lung bases are clear. There is no subphrenic gas. IMPRESSION: MILD IMPROVEMENT OF THE PARTIAL SMALL BOWEL OBSTRUCTIVE PATTERN
--- NOTE | 2017-03-31 15:03 | PN ---
Subjective Date of Service: 03/31/17 Interval History: Patient feeling better overnight with no nausea and abdominal pain fully controlled with morphine. Patient states he has been passing flatus and later in the day stated that he had a bowel movement. Patient denies CP, SOB, N/V, F/C , or any other pain. Patient's was present and had questions about his clinical course that were answered to her satisfaction. Patient has an appointment with GI this to discuss preexisting gall bladder issues. Family History: Unchanged from Admission Social History: Unchanged from Admission Past Medical History: Unchanged from Admission Objective Active Medications: Aspirin (Aspirin Low Dose Tab*) 81 mg PO QAM [facility] Last Admin: 03/31/17 08:37 Dose: 81 mg Bupropion HCl (Wellbutrin Sr Tab*) 300 mg PO DAILY [facility] Last Admin: 03/31/17 10:02 Dose: 300 mg Cefuroxime Axetil (Ceftin Tab(*)) 500 mg PO BID [facility] Last Admin: 03/31/17 08:36 Dose: 500 mg Citalopram [facility]bromide ([facility]*) [facility] Admin: 03/31/17 08:37 Dose: 20 mg Clopidogrel Bisulfate (Plavix Tab*) 75 mg PO QAM [facility] Last Admin: 03/31/17 08:37 Dose: 75 mg Dextrose (D50w Syringe 50 Ml*) 12.5 gm IV PUSH .FOR FS < 60 - SS PRN PRN Reason: FS < 60 Diltiazem HCl (Cardizem Cd Cap*) 180 mg PO [facility] Last Admin: 03/31/17 08:37 Dose: 180 mg Fenofibrate (Tricor(Nf)) 48 mg PO DAILY [facility] Last Admin: 03/31/17 08:40 Dose: Not Given Hydrochlorothiazide (Hydrodiuril Tab*) 25 mg PO QAM [facility] Last Admin: 03/31/17 08:36 Dose: 25 mg Hydroxychloroquine Sulfate (Plaquenil Tab*) 200 mg PO BID [facility] Last Admin: 03/31/17 08:43 Dose: 200 mg Sodium Chloride (Ns 0.9% 1000 Ml*) 1,000 mls @ 75 mls/hr IV PER RATE [facility] Stop: 04/01/17 14:49 Last Admin: 03/31/17 03:38 Dose: 75 mls/hr Insulin Human Lispro (Humalog*) 0 units SUBCUT Q6HR [facility] PRN Reason: Protocol Last Admin: 03/31/17 11:58 Dose: Not Given Levothyroxine Sodium (Synthroid Tab*) 100 mcg PO QAM@0600 [facility] Last Admin: 03/31/17 06:14 Dose: 100 mcg Lisinopril (Prinivil Tab*) 20 mg PO BID [facility] Last Admin: 03/31/17 08:37 Dose: 20 mg Metoprolol Succinate (Toprol Xl Tab*) 50 mg PO BID [facility] Last Admin: 03/31/17 08:37 Dose: 50 mg Morphine Sulfate (Morphine Inj (Syringe)*) 4 mg IV Q4H PRN PRN Reason: PAIN Last Admin: 03/31/17 03:00 Dose: 4 mg Nitroglycerin (Nitroglycerin Tab 0.4 Mg*) 0.4 mg SL Q5M PRN PRN Reason: PAIN - CHEST Ondansetron HCl (Zofran Inj*) 4 mg IV Q4H PRN PRN Reason: NAUSEA/VOMITING Last Admin: 03/31/17 13:25 Dose: 4 mg Pantoprazole Sodium (Protonix Tab (Nf)) 40 mg PO BID [facility] Last Admin: 03/31/17 08:38 Dose: 40 mg Pioglitazone HCl (Actos Tab*) 15 mg PO DAILY [facility] Last Admin: 03/31/17 08:36 Dose: 15 mg Potassium Chloride (Klor Con Er Tab*) 20 meq PO BID [facility] Last Admin: 03/31/17 08:37 Dose: 20 meq Trazodone HCl (Desyrel Tab*) 50 mg PO BEDTIME PRN PRN Reason: INSOMNIA Warfarin Sodium (Coumadin Tab(*)) 5 mg PO SuTuThSa@1700 [facility] PRN Reason: Protocol Warfarin Sodium (Coumadin Tab(*)) 7.5 mg PO MoWeFr@1700 [facility] PRN Reason: Protocol Zolpidem Tartrate (Ambien Tab*) 10 mg PO BEDTIME PRN PRN Reason: SLEEP Vital Signs 03/31/17 03/31/17 03/31/17 02:25 03:00 03:07 Temperature 97.9 F Pulse Rate 93 Respiratory 16 16 18 Rate Blood Pressure 167/98 (mmHg) O2 Sat by Pulse 100 Oximetry 03/31/17 03/31/17 03/31/17 03:25 04:00 07:44 Temperature 97.9 F 98.6 F Pulse Rate 88 69 Respiratory 16 14 16 Rate Blood Pressure 167/98 180/77 (mmHg) O2 Sat by Pulse 100 98 Oximetry 03/31/17 03/31/17 07:51 10:48 Temperature 97.6 F Pulse Rate 84 Respiratory 18 16 Rate Blood Pressure 182/96 (mmHg) O2 Sat by Pulse 99 Oximetry Oxygen Devices in Use Now: None Appearance: Patient is a 56yo male who appears stated age and is sitting in the exam bed in [facility]. Eyes: No Scleral Icterus, PERRLA Ears/Nose/Mouth/Throat: NL Teeth, Lips, Gums, Mucous Membranes Moist Neck: NL Appearance and Movements; NL JVP Respiratory: Symmetrical Chest Expansion and Respiratory Effort, Clear to Auscultation Cardiovascular: NL Sounds; No Murmurs; No JVD, RRR, No Edema Abdominal: No Hepatosplenomegaly, - - Bowel sounds present and hyperactive with normal sounds in all 4 quadrants, no squeaks or tinkles noted. Diffuse tenderness to palpation, particularly in LUQ with voluntary and involuntary guarding. Coughing does not localize the pain. Lymphatic: No Cervical Adenopathy Extremities: No Edema, No Clubbing, Cyanosis Skin: No Rash or Ulcers, No Nodules or Sclerosis Neurological: Alert and Oriented x 3, NL Sensation, NL Gait, NL Muscle Strength and Tone Result Diagrams: 03/31/17 05:18 03/31/17 05:18 Assess/Plan/Problems-Billing Assessment: Patient is a 56yo male with a PMH significant for CAD with [place], GERD, HTN, HLD, hypothyroidism, DMII, NICANOR, and factor V Leiden who presents with a partial SBO with continued flatus and is now having bowel movements and tolerating PO intake. - Patient Problems (1) Small intestine obstruction Current Visit: Yes Status: Acute Code(s): K56.69 - OTHER INTESTINAL OBSTRUCTION * DO NOT USE * SNOMED Code(s): 759066415 Comment: Conservative management. Patient passing flatus and stool, transitioned to clear liquid diet. Abdominal pain controlled, no nausea at this time. Xray shows improvement in obstructive bowel gas pattern. Consult surgery for increases in abdominal pain and obstipation. No previous abdominal surgeries, consider further imaging to establish cause of SBO. NS running at 75. (2) Coronary artery disease Current Visit: Yes Status: Acute Code(s): I25.10 - ATHSCL HEART DISEASE OF [place] CORONARY ARTERY W/O ANG PCTRS SNOMED Code(s): 29316528 Comment: Continue home ASA and Plavix (3) Depression Current Visit: Yes Status: Acute Code(s): F32.9 - MAJOR DEPRESSIVE DISORDER , SINGLE EPISODE, UNSPECIFIED SNOMED Code(s): 71677703 Comment: Continue Citalopram and Wellbutrin (4) Hypothyroidism Current Visit: Yes Status: Acute Code(s): E03.9 - HYPOTHYROIDISM, UNSPECIFIED SNOMED Code(s): 00616248 Comment: Continue synthroid (5) Factor 5 Leiden mutation, heterozygous Current Visit: Yes Status: Acute Code(s): D68.51 - ACTIVATED PROTEIN C RESISTANCE SNOMED Code(s): 885910678 Comment: Continue warfarin, INR subtherapeutic, will check in AM. (6) Diabetes Current Visit: Yes Status: Acute Code(s): E11.9 - TYPE 2 DIABETES MELLITUS WITHOUT COMPLICATIONS SNOMED Code(s): 02299109 Comment: Slightly hyperglycemic, SSI insulin, FSBG checks ACHS and continue Actos. (7) Hypertension Current Visit: Yes Status: Acute Code(s): I10 - ESSENTIAL (PRIMARY) HYPERTENSION SNOMED Code(s): 40884708 Comment: Patient hypertensive from 170s-180s systolic on home medications. Will add in hydralazine for PRN blood pressure lowering. (8) DVT prophylaxis Current Visit: Yes Status: Acute Code(s): SYP6414 - SNOMED Code(s): 876555629 Comment: Warfarin, encourage ambulation. Status and Disposition: Patient is improving quickly, will discharge when able to tolerate PO intake. Estimate 1-2 day LOS.
[2017-03-31] MEDS ORDERED: hydrALAZINE IV* 20 MG/ML VIAL IV SLOW PU PRN (15:32)
[2017-03-31] MEDS ORDERED: Warfarin TAB(*) 7.5 MG PO SCH (17:00)
[2017-04-01] MEDS: Insulin LISPRO* 1 UNITS UNIT SUBCUT SCH ×3 (00:17→13:58)
[2017-04-01] MEDS: Morphine INJ* 4 MG/ML 1 ML CARPUJECT IV PRN ×2 (02:44→13:21)
[2017-04-01] MEDS ORDERED: Acetaminophen TAB* 325 MG PO PRN (04:01)
[2017-04-01] MEDS ORDERED: Acetaminophen TAB* 325 MG ONE (04:10)
[2017-04-01] MEDS: Levothyroxine TAB* 100 MCG TAB PO SCH (05:38)
[2017-04-01 07:03] LABS: Hematocrit 37 % (42-52); Hemoglobin 13.1 g/dl (14.0-18.0); Mean Corpuscular HGB Conc 35 g/dl (31-36); Mean Corpuscular Hemoglobin 31 pg (27-31); Mean Corpuscular Volume 88 fL (80-94); Mean Platelet Volume 8 um3 (7.4-10.4); Red Blood Count 4.21 10^6/ul (4.0-5.4); Red Cell Distribution Width 13 % (10.5-15); White Blood Count 7.4 10^3/ul (3.5-10.8)
[2017-04-01 07:19] LABS: BUN/Creatinine Ratio 15.3 (8-20); Calcium 8.5 mg/dL (8.6-10.3); EGFR African American 144.7 (>60); EGFR Non-African American 112.5 (>60); Potassium 3.5 mmol/L (3.5-5.0)
[2017-04-01] MEDS: Fenofibrate(NF) 48 MG TAB PO SCH (09:30)
--- NOTE | 2017-04-01 09:32 | RAD ---
HISTORY: Follow-up small bowel obstruction COMPARISONS: March 31, 2017 VIEWS: Frontal views of the abdomen. FINDINGS: BOWEL: There is distention and mild dilatation of the small bowel left upper quadrant, with a paucity of distal bowel gas. The degree of small bowel dilatation has increased in compared to March 31, 2017. CALCULI: There are no abnormal calculi. BONES AND SOFT TISSUES: There are no osseous abnormalities. OTHER FINDINGS: The lung bases are clear. There is no subphrenic gas. IMPRESSION: SMALL BOWEL OBSTRUCTIVE PATTERN, WITH SOMEWHAT PROGRESSED SMALL BOWEL DILATATION WHEN COMPARED TO MARCH 31, 2017
[2017-04-01] MEDS: ceFUROXime TAB(*) 250 MG PO SCH (09:37)
[2017-04-01] MEDS: buPROPion SR TAB.SR* 150 MG PO SCH (09:37)
[2017-04-01] MEDS: CMCS:Pantoprazole TAB (NF) 40 MG TAB PO SCH (09:37)
[2017-04-01] MEDS: Metoprolol Succinate XL TAB* 50 MG PO SCH (09:38)
[2017-04-01] MEDS: Clopidogrel TAB* 75 MG PO SCH (09:38)
[2017-04-01] MEDS: Aspirin Low Dose CHEW TAB* 81 MG PO SCH (09:38)
[2017-04-01] MEDS: Citalopram TAB* 20 MG PO SCH (09:38)
[2017-04-01] MEDS: Potassium Chlor TAB* 20 MEQ TAB.ER PO SCH (09:38)
[2017-04-01] MEDS: Lisinopril TAB* 10 MG PO SCH (09:38)
[2017-04-01] MEDS: Pioglitazone TAB* 15 MG PO SCH (09:38)
[2017-04-01] MEDS: Diltiazem CD CAP* 180 MG PO SCH (09:38)
[2017-04-01] MEDS: Hydrochlorothiazide TAB* 25 MG PO SCH (09:38)
[2017-04-01] MEDS: Hydroxychloroquine TAB* 200 MG PO SCH (09:38)
--- NOTE | 2017-04-01 12:33 | ED ---
Rusty Harrell Alfonso, scribed for Donny Aguirre MD on 03/30/17 at 2136 . Abdominal Pain/Male - HPI Summary HPI Summary: This patient is a 56 year old M presenting to [facility] with a chief complaint of upper abdominal pain since earlier today. The pain radiates to his back. The patient rates the pain 7/10 in severity. Symptoms aggravated by nothing. Symptoms alleviated by nothing. Patient reports diaphoresis. - History of Current Complaint Chief Complaint: EDChestPainROMI Stated Complaint: CHEST PAIN Time Seen by Provider: 03/30/17 21:29 Hx Obtained From: Patient Onset/Duration: Sudden Onset, Lasting Hours, Still Present Timing: Constant Severity Currently: Moderate Pain Intensity: 7 Pain Scale Used: 0-10 Numeric Location: Other - Upper Radiates: Yes Radiates to: Back Aggravating Factor(s): Nothing Alleviating Factor(s): Nothing Associated Signs And Symptoms: Positive: Diaphoresis - Allergies/Home Medications Allergies/Adverse Reactions: Allergies Allergy/AdvReac Type Severity Reaction Status Date / Time Ibuprofen Allergy Severe Bleeding Verified 03/31/17 02:08 Penicillins [PCN] Allergy Severe Anaphylatic Verified 03/31/17 02:08 Shock Statins Allergy See Comment Verified 03/31/17 02:08 PMH/Surg Hx/FS Hx/Imm Hx Endocrine/Hematology History: Reports: Hx Anticoagulant Therapy - COUMADIN FOR FACTOR V LEIDEN, Hx Blood Disorders - FACTOR V LEIDEN DEFICIENCY, Hx Diabetes - DM 2 METFORMIN, Hx Thyroid Disease - HYPOTHYROID, ON DAILY MEDS, Other Endocrine /Hematological Disorders - Lyme disease Denies: Hx Blood Transfusions, Hx Bone Marrow Disease, Hx Systemic Lupus Erythematosus, Hx Sickle Cell Disease, Hx Anemia, Hx Unexplained Bleeding Cardiovascular History: Reports: Hx Angina, Hx Coronary Artery Disease, Hx Hypercholesterolemia, Hx Hypertension - ON DAILY MEDS, Hx Myocardial Infarction , Other Cardiovascular Problems/Disorders - FOLLOWED BY DR ELDRIDGE, LAST SEEN 06/13 Denies: Hx Aneurysm, Hx Auto Implanted Cardiovert Defib, Hx Cardiac Arrest, Hx Cardiomegaly, Hx Congenital Heart Disease, Hx Congestive Heart Failure, Hx Hypotension, Hx Pacemaker/ICD, Hx Peripheral Vascular Disease, Hx Rheumatic Fever, Hx Syncope, Hx Valvular Heart Disease Respiratory History: Reports: Hx Sleep Apnea Denies: Hx Asthma, Hx Chronic Bronchitis, Hx Chronic Obstructive Pulmonary Disease (COPD), Hx Cystic Fibrosis, Hx Lung Cancer, Hx Pleural Effusion, Hx Pneumonia, Hx Pulmonary Edema, Hx Seasonal Allergies, Other Respiratory Problems /Disorders GI History: Reports: Hx Gastroesophageal Reflux Disease - ON DAILY MEDS Denies: Hx Cirrhosis, Hx Crohn's Disease, Hx Diverticulosis, Hx Gall Bladder Disease, Hx Gastrointestinal Bleed, Hx Hiatal Hernia, Hx Irritable Bowel, Hx Jaundice, Hx Obstructive Bowel, Hx Ileostomy, Hx Pyloric Stenosis, Hx Ulcer, Other GI Disorders History: Denies: Hx Acute Renal Failure, Hx Benign Prostatic Hyperplasia, Hx Chronic Renal Failure, Hx Dialysis, Hx Kidney Infection, Hx Kidney Stones, Hx Renal Disease Musculoskeletal History: Reports: Hx Arthritis - Sx, BUT CAUSE OF JOINT PAINS IS R/T LYME DISEASE, Other Musculoskeletal History - RIGHT KNEE ARTHROSCOPY Denies: Hx Back Problems, Hx Bursitis, Hx Congenital Bone Abnormalities, Hx Fibromyalgia, Hx Gout, Hx Orthopedic Injury, Hx Osteoporosis, Hx Scoliosis, Hx Tendonitis Sensory History: Reports: Hx Contacts or Glasses - GLASSES Denies: Hx Cataracts, Hx Eye Injury, Hx Eye Prosthesis, Hx Glaucoma, Hx Legally Blind, Hx Macular Degeneration, Hx Vision Problem, Other Sensory Impairments Opthamlomology History: Reports: Hx Contacts or Glasses - GLASSES Denies: Hx Cataracts, Hx Eye Injury, Hx Eye Prosthesis, Hx Glaucoma, Hx Legally Blind, Hx Macular Degeneration, Hx Vision Problem, Other Sensory Impairments Neurological History: Denies: Hx Dementia, Hx Developmental Delay, Hx Headaches, Hx Migraine, Hx Nerve Disease, Hx Seizures, Hx Spinal Cord Injury, Hx Transient Ischemic Attacks (TIA) Psychiatric History: Reports: Hx Depression - HAS MEDS PRN Denies: Hx Anxiety, Hx Attention Deficit Hyperactivity Disorder, Hx Eating Disorder, Hx Panic Disorder, Hx Post Traumatic Stress Disorder, Hx Inpatient Treatment, Hx Community Mental Health Tx, Hx Schizophrenia, Hx Bipolar Disorder , Hx Suicide Attempt, Hx of Violent Episodes Against Others, Hx Substance Abuse , Other Psychiatric Issues/Disorders - Surgical History Surgery Procedure, Year, and Place: MULT.CARDIAC CATHETERIZATIONS W/STENTS (6 TOTAL), [id number] [facility] [place]. [place] RIGHT KNEE ARTHROSCOPY [facility] [place]. 2016 RTC RIGHT SHOULDER MARLON; Hx Anesthesia Reactions: No Infectious Disease History: Denies: Hx Clostridium Difficile, Hx Hepatitis, Hx Human Immunodeficiency Virus (HIV), Hx of Known/Suspected MRSA, Hx Shingles, Hx Tuberculosis, Hx Known/ Suspected VRE, Hx Known/Suspected VRSA, History Other Infectious Disease - Family History Known Family History: Negative: Cardiac Disease, Hypertension, Diabetes - Social History Alcohol Use: Rare Alcohol Amount: "6-packs a week"" Substance Use Type: Reports: None Smoking Status (MU): Former Smoker Type: Cigarettes Amount Used/How Often: 2PPD 30 YRS Length of Time of Smoking/Using Tobacco: 30 yrs; quit 2004 Have You Smoked in the Last Year: No Review of Systems Positive: Skin Diaphoresis. Negative: Fever Positive: Abdominal Pain - upper All Other Systems Reviewed And Are Negative: Yes Physical Exam - Summary Physical Exam Summary: VITAL SIGNS: Reviewed. GENERAL: Patient is an ill appearing, well-developed, and nourished male who is lying comfortable in the stretcher. Patient is not in any acute respiratory distress. HEAD AND FACE: No signs of trauma. No ecchymosis, hematomas or skull depressions. No sinus tenderness. EYES: PERRLA, EOMI x 2, No injected conjunctiva, no nystagmus. EARS: Hearing grossly intact. Ear canals and tympanic membranes are within normal limits. MOUTH: Oropharynx within normal limits. NECK: Supple, trachea is midline, no adenopathy, no JVD, no carotid bruit, no c- spine tenderness, neck with full ROM. CHEST: Symmetric, no tenderness at palpation LUNGS: Clear to auscultation bilaterally. No wheezing or crackles. CVS: Regular rate and rhythm, S1 and S2 present, no murmurs or gallops appreciated. ABDOMEN: LUQ tenderness with guarding. Soft. No signs of distention. No rebound , and no masses palpated. Bowel sounds are normal. EXTREMITIES: FROM in all major joints, no edema, no cyanosis or clubbing. NEURO: Alert and oriented x 3. No acute neurological deficits. Speech is normal and follows commands. SKIN: Diaphoretic and warm Triage Information Reviewed: Yes Vital Signs On Initial Exam: Initial Vitals Temp Pulse Resp BP Pulse Ox 97.4 F 72 20 170/78 100 03/30/17 21:55 03/30/17 21:55 03/30/17 21:55 03/30/17 21:55 03/30/17 21:55 Vital Signs Reviewed: Yes Diagnostics - Vital Signs Vital Signs Temp Pulse Resp BP Pulse Ox 03/31/17 01:02 80 18 160/69 98 03/30/17 23:35 18 03/30/17 21:55 97.4 F 72 20 170/78 100 - Laboratory Lab Results: Lab Results 03/30/17 03/30/17 03/30/17 Range/Units 21:36 21:36 21:36 WBC 11.6 H (3.5-10.8) 10^3/ul RBC 4.96 (4.0-5.4) 10^6/ul Hgb 15.7 (14.0-18.0) g/dl Hct 44 (42-52) % MCV 88 (80-94) fL MCH 32 H (27-31) pg MCHC 36 (31-36) g/dl RDW 13 (10.5-15) % Plt Count 247 (150-450) 10^3/ul MPV 8 (7.4-10.4) um3 Neut % (Auto) 59.0 (38-83) % Lymph % (Auto) 34.4 (25-47) % Vermillion % (Auto) 4.9 (1-9) % Eos % (Auto) 0.9 (0-6) % Baso % (Auto) 0.8 (0-2) % Absolute Neuts (auto) 6.9 (1.5-7.7) 10^3/ul Absolute Lymphs (auto) 4.0 (1.0-4.8) 10^3/ul Absolute Monos (auto) 0.6 (0-0.8) 10^3/ul Absolute Eos (auto) 0.1 (0-0.6) 10^3/ul Absolute Basos (auto) 0.1 (0-0.2) 10^3/ul Absolute Nucleated RBC 0.01 10^3/ul Nucleated RBC % 0.1 INR (Anticoag Therapy) (0.89-1.11) Sodium 137 (133-145) mmol/L Potassium 3.4 L (3.5-5.0) mmol/L Chloride 103 (101-111) mmol/L Carbon Dioxide 23 (22-32) mmol/L Anion Gap 11 (2-11) mmol/L BUN 17 (6-24) mg/dL Creatinine 0.80 (0.67-1.17) mg/dL Est GFR ( Amer) 128.1 (>60) Est GFR (Non-Af Amer) 99.6 (>60) BUN/Creatinine Ratio 21.3 H (8-20) Glucose 171 H (70-100) mg/dL Lactic Acid 2.3 H* (0.5-2.0) mmol/L Calcium 9.8 (8.6-10.3) mg/dL Total Bilirubin 0.50 (0.2-1.0) mg/dL AST 16 (13-39) U/L ALT 17 (7-52) U/L Alkaline Phosphatase 52 (34-104) U/L Troponin I 0.01 (<0.04) ng/mL C-Reactive Protein 6.71 H (< 5.00) mg/L B-Natriuretic Peptide ( - 100) pg/mL Total Protein 7.5 (6.4-8.9) g/dL Albumin 4.7 (3.2-5.2) g/dL Globulin 2.8 (2-4) g/dL Albumin/Globulin Ratio 1.7 (1-3) Amylase 27 L (29-103) U/L Lipase 27 (11.0-82.0) U/L 03/30/17 03/30/17 Range/Units 21:36 21:36 WBC (3.5-10.8) 10^3/ul RBC (4.0-5.4) 10^6/ul Hgb (14.0-18.0) g/dl Hct (42-52) % MCV (80-94) fL MCH (27-31) pg MCHC (31-36) g/dl RDW (10.5-15) % Plt Count (150-450) 10^3/ul MPV (7.4-10.4) um3 Neut % (Auto) (38-83) % Lymph % (Auto) (25-47) % Vermillion % (Auto) (1-9) % Eos % (Auto) (0-6) % Baso % (Auto) (0-2) % Absolute Neuts (auto) (1.5-7.7) 10^3/ul Absolute Lymphs (auto) (1.0-4.8) 10^3/ul Absolute Monos (auto) (0-0.8) 10^3/ul Absolute Eos (auto) (0-0.6) 10^3/ul Absolute Basos (auto) (0-0.2) 10^3/ul Absolute Nucleated RBC 10^3/ul Nucleated RBC % INR (Anticoag Therapy) 1.72 H (0.89-1.11) Sodium (133-145) mmol/L Potassium (3.5-5.0) mmol/L Chloride (101-111) mmol/L Carbon Dioxide (22-32) mmol/L Anion Gap (2-11) mmol/L BUN (6-24) mg/dL Creatinine (0.67-1.17) mg/dL Est GFR ( Amer) (>60) Est GFR (Non-Af Amer) (>60) BUN/Creatinine Ratio (8-20) Glucose (70-100) mg/dL Lactic Acid (0.5-2.0) mmol/L Calcium (8.6-10.3) mg/dL Total Bilirubin (0.2-1.0) mg/dL AST (13-39) U/L ALT (7-52) U/L Alkaline Phosphatase (34-104) U/L Troponin I (<0.04) ng/mL C-Reactive Protein (< 5.00) mg/L B-Natriuretic Peptide 28 ( - 100) pg/mL Total Protein (6.4-8.9) g/dL Albumin (3.2-5.2) g/dL Globulin (2-4) g/dL Albumin/Globulin Ratio (1-3) Amylase (29-103) U/L Lipase (11.0-82.0) U/L Result Diagrams: 04/01/17 06:55 04/01/17 06:55 Lab Statement: Any lab studies that have been ordered have been reviewed, and results considered in the medical decision making process. - Radiology CXR Radiology Interpretation Completed By: ED Physician - NAD - CT A/P CT Interpretation Completed By: Radiologist - partial small bowel obstruction, without discrete transition point, abscess, free air. ED physician has reviewed this radiology report and agrees. - EKG 2127 Cardiac Rate: NL - BPM 88 EKG Rhythm: Sinus Rhythm EKG Interpretation: No ST elevation Abdominal Pain Fem Course/Dx - Course Assessment/Plan: This patient is a 56 year old M presenting to [facility] with a chief complaint of upper abdominal pain since earlier today. The pain radiates to his back. The patient rates the pain 7/10 in severity. Symptoms aggravated by nothing. Symptoms alleviated by nothing. Patient reports diaphoresis. Test results with no significant abnormalities except for WBC of 11.6, Potassium of 3.4, Glucose of 171, lactic acid of 2.3, and CRP of 6.7. An EKG reveals NSR. CXR reveals NAD. CT A/P reveals partial small bowel obstruction, without discrete transition point, abscess, free air. ED physician has reviewed this radiology report and agrees. At this point I ordered IV fluids for the patient and consulted Dr. Nix (hospitalist) who agrees to admit. The patient is hemodynamically stable and alert and oriented x3. - Diagnoses Differential Diagnosis/HQI/PQRI: Bowel Obstruction, Constipation, Diverticulitis Provider Diagnoses: Partial small bowel obstruction - Provider Notifications Discussed Care Of Patient With: Guru Nix Time Discussed With Above Provider: 00:48 Instructed by Provider To: Other - Consulted Dr. Nix (hospitalist) who agrees to admit. Discharge - Discharge Plan Condition: Stable Disposition: ADMITTED TO [facility] documentation as recorded by the Rusty cannon Alfonso accurately reflects the service I personally performed and the decisions made by , Donny Aguirre MD.
[2017-04-01 13:59] VITALS: BP 156/82
[2017-04-01] MEDS ORDERED: Warfarin TAB(*) 5 MG PO SCH (17:00)
--- NOTE | 2017-04-02 02:11 | DS ---
CC: Dr. Smallwood * DISCHARGE SUMMARY: DATE OF ADMISSION: 03/31/17 DATE OF DISCHARGE: 04/01/17 PRIMARY CARE PROVIDER: Dr. Smallwood. DISCHARGING PROVIDER: SIOMARA Mason. SUPERVISING PHYSICIAN: Dr. David Agrawal * (DICTATED BY SIOMARA MASON) PRIMARY DISCHARGE DIAGNOSIS: Partial small bowel obstruction. SECONDARY DISCHARGE DIAGNOSES: 1. Coronary artery disease without evidence of acute coronary syndrome contributing to this hospital admission. 2. Hypertension. 3. Hyperlipidemia. 4. Hypothyroidism. 5. Qzj-fshuxxa-uldnnvfri diabetes. 6. Obstructive sleep apnea. 7. Factor V Leiden deficiency, chronically anticoagulated on Coumadin. INR is subtherapeutic at the time of discharge. 8. Treatment for chronic Lyme disease with cefuroxime and opioid analgesics. DISCHARGE MEDICATIONS: 1. Aspirin 81 mg p.o. daily. 2. Cefuroxime 500 mg p.o. twice daily. 3. Celexa 20 mg p.o. daily. 4. Plavix 75 mg p.o. daily. 5. Diltiazem 180 mg p.o. daily. 6. Fenofibrate 48 mg p.o. daily. 7. Hydrochlorothiazide 25 mg p.o. daily. 8. Plaquenil 200 mg p.o. twice daily. 9. Levothyroxine 100 mcg p.o. daily. 10. Lisinopril 20 mg p.o. twice daily. 11. Metoprolol succinate 50 mg p.o. twice daily. 12. Nitroglycerin 0.4 mg sublingual q.5 minutes as needed for chest pain. 13. Protonix 40 mg p.o. twice daily. 14. Pioglitazone 1 tablet p.o. daily. 15. Coumadin 7.5 mg p.o. daily. 16. Ambien 10 mg p.o. at bedtime. 17. Wellbutrin 300 mg p.o. daily. 18. Oxycodone/acetaminophen 10/325 one tablet p.o. q.4 hours as needed for pain. 19. Trazodone 50 mg p.o. at bedtime. Medication changes: 1. Increase warfarin to 7.5 mg daily from alternating with 5. HOSPITAL IMAGIN. Chest x-ray shows no acute process. 2. 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 3. KUB 03/31/17 showed mild improvement of partial small bowel obstructive pattern. 4. KUB 04/01/17 shows small bowel obstructive pattern, perhaps somewhat worse than the day prior. HOSPITAL COURSE: This is a 56-year-old gentleman without a history of prior abdominal surgery, but an extensive medical history including coronary artery disease with prior TX, GERD, hypertension, hypothyroidism, hyperlipidemia, non- insulin-dependent diabetes, obstructive sleep apnea, factor V Leiden deficiency , and diagnosis and treatment for chronic Lyme disease, who presented to the emergency department with complaints of abdominal pain. The patient had noted some mild symptoms beginning approximately 2 days prior to his hospital admission. He had had a normal bowel movement up till the day of admission without severe vomiting. CT scan demonstrated a pattern consistent with partial small bowel obstruction without an obvious transition point. Initial labs showed a mild leukocytosis with white blood cell count of 11,000, mild hypokalemia, elevated lactic acid of 2.3. Transaminases within normal limits and a normal lipase. The patient was subsequently admitted for partial small bowel obstruction. The patient's symptoms improved while n.p.o. He was able to pass gas and had 3 bowel movements prior to leaving the hospital. The patient did note some increased distention and mild increase in pain with breakfast the morning of discharge, but did not have that same experience with lunch on full liquids. DISPOSITION AND FOLLOWUP PLAN: The patient is being discharged to home. Recommend full liquid/soft diet, which is low in fiber content for at least the next several days until symptoms are completely resolved. Etiology of his obstruction is not entirely clear and the patient does not require any specific specialist followup to this hospital admission, but sounds like he is overdue for a colonoscopy, which may be helpful on an outpatient basis. The patient's INR is subtherapeutic at the time of discharge at 1.58. Recommendations are made to increase his Coumadin dose and repeat INR in the next 3 to 5 days with follow up with his primary care provider. SIOMARA MASON [id number]/[facility] #: [id number] DOMEN[place]
== END 2017-04-01 16:30 | disposition home or self-care (01) ==
LOC: ED 21:22 → SSU 03-31 01:23 → INTOOBSV 03-31 01:23
PROVIDERS: ADMIT Internal Medicine; ATTEND Hospitalist
DX: K56.609 Unspecified intestinal obstruction, unspecified as to partial versus complete obstruction (principal); I25.119 Atherosclerotic heart disease of native coronary artery with unspecified angina pectoris; I10 Essential (primary) hypertension; E78.5 Hyperlipidemia, unspecified; E03.9 Hypothyroidism, unspecified; E11.9 Type 2 diabetes mellitus without complications; G47.33 Obstructive sleep apnea (adult) (pediatric); D68.51 Activated protein C resistance; Z79.01 Long term (current) use of anticoagulants; Z79.899 Other long term (current) drug therapy; Z88.0 Allergy status to penicillin; Z88.8 Allergy status to other drugs, medicaments and biological substances; Z87.891 Personal history of nicotine dependence; R94.31 Abnormal electrocardiogram [ECG] [EKG]
CPT/HCPCS: 36415; 71010; 74000; 74177; 80048; 80053; 82150; 83605; 83690; 83880; 84484; 85025; 85610; 86140; 93005; 96374; 96375; 96376; 99285; A9270-GY; G0378; J2270; J2405; Q9967